=== PATIENT | female | born 1960 | race Caucasian/White ===

== ENCOUNTER 2018-11-30 04:31 | Emergency (ER) | payer BC, OTHER ==
[~2018-11-30] VITALS: Ht 160 cm; Wt 106.6 kg
--- OUTSIDE RECORDS SUMMARY | 2018-11-30 04:41 | XMS REPORT | Continuity of Care Document ---
Author Organization Unknown Address Unknown Allergies There is no data. Medications There is no data. Problems There is no data. Procedures There is no data. Results Test Result Range CULTURE, URINE - 11/15/18 15:42 CULTURE, URINE, ROUTINE SEE NOTE NRG PDM - 09 PANEL (PROFILE 1) - 11/15/18 15:42 Prescribed Drug 1 NRG Creatinine NRG pH NRG Oxidant NRG Amphetamines NRG medMATCH Amphetamines NRG Benzodiazepines NRG medMATCH Benzodiazepines NRG Marijuana Metabolite NRG medMATCH Marijuana Metab NRG Cocaine Metabolite NRG medMATCH Cocaine Metab NRG Opiates NRG medMATCH Opiates NRG Oxycodone NRG medMATCH Oxycodone NRG Amphetamine NRG medMATCH Amphetamine NRG Methamphetamine NRG medMATCH Methamphetamine NRG Alphahydroxyalprazolam NRG medMATCH aOH alprazolam NRG Alphahydroxymidazolam NRG medMATCH aOH midazolam NRG Alphahydroxytriazolam NRG medMATCH aOH triazolam NRG Aminoclonazepam NRG medMATCH Aminoclonazepam NRG Hydroxyethylflurazepam NRG medMATCH [place],Et flurazepam NRG Lorazepam NRG medMATCH Lorazepam NRG Nordiazepam NRG medMATCH Nordiazepam NRG Oxazepam NRG medMATCH Oxazepam NRG Temazepam NRG medMATCH Temazepam NRG Codeine NRG medMATCH Codeine NRG Hydrocodone NRG medMATCH Hydrocodone NRG Hydromorphone NRG medMATCH Hydromorphone NRG Morphine NRG medMATCH Morphine NRG Norhydrocodone NRG medMATCH Norhydrocodone NRG Prescribed Drug 2 NRG Prescribed Drug 3 NRG Prescribed Drug 4 NRG Prescribed Drug 5 NRG Specific [place] NRG Abnormal Specimen Validity Test: NRG Marijuana Metabolite NRG medMATCH Marijuana Metab NRG Benzoylecgonine NRG medMATCH Benzoylecgonine NRG Noroxycodone NRG medMATCH Noroxycodone NRG Oxycodone NRG medMATCH Oxycodone NRG Oxymorphone NRG medMATCH Oxymorphone NRG Barbiturates NRG medMATCH Barbiturates NRG Methadone Metabolite NRG medMATCH Methadone Metab NRG Phencyclidine NRG medMATCH Phencyclidine NRG Amobarbital NRG medMATCH Amobarbital NRG Butalbital NRG medMATCH Butalbital NRG Pentobarbital NRG medMATCH Pentobarbital NRG Phenobarbital NRG medMATCH Phenobarbital NRG Secobarbital NRG medMATCH Secobarbital NRG EDDP NRG medMATCH EDDP NRG Methadone NRG medMATCH Methadone NRG Phencyclidine NRG medMATCH Phencyclidine NRG Confirmation Testing Performed at: [facility] PDM - 09 PANEL (PROFILE 1) - 11/15/18 15:49 Creatinine 69.4 mg/dL > or=20.0 pH 6.04 4.5 - 9.0 Oxidant NEGATIVE mcg/mL <200 Amphetamines NEGATIVE ng/mL <500 medMATCH Amphetamines CONSISTENT NRG Benzodiazepines POSITIVE ng/mL <100 Marijuana Metabolite NEGATIVE ng/mL <20 medMATCH Marijuana Metab CONSISTENT NRG Cocaine Metabolite NEGATIVE ng/mL <150 medMATCH Cocaine Metab CONSISTENT NRG Opiates POSITIVE ng/mL <100 Oxycodone NEGATIVE ng/mL <100 medMATCH Oxycodone CONSISTENT NRG COMMENT NRG Alphahydroxyalprazolam 48 ng/mL <25 medMATCH aOH alprazolam INCONSISTENT NRG Alphahydroxymidazolam NEGATIVE ng/mL <50 medMATCH aOH midazolam CONSISTENT NRG Alphahydroxytriazolam NEGATIVE ng/mL <50 medMATCH aOH triazolam CONSISTENT NRG Aminoclonazepam NEGATIVE ng/mL <25 medMATCH Aminoclonazepam CONSISTENT NRG Hydroxyethylflurazepam NEGATIVE ng/mL <50 medMATCH [place],Et flurazepam CONSISTENT NRG Lorazepam NEGATIVE ng/mL <50 medMATCH Lorazepam CONSISTENT NRG Nordiazepam NEGATIVE ng/mL <50 medMATCH Nordiazepam CONSISTENT NRG Oxazepam NEGATIVE ng/mL <50 medMATCH Oxazepam CONSISTENT NRG Temazepam NEGATIVE ng/mL <50 medMATCH Temazepam CONSISTENT NRG Codeine NEGATIVE ng/mL <50 medMATCH Codeine CONSISTENT NRG Hydrocodone NEGATIVE ng/mL <50 medMATCH Hydrocodone CONSISTENT NRG Hydromorphone NEGATIVE ng/mL <50 medMATCH Hydromorphone CONSISTENT NRG Morphine 7839 ng/mL <50 medMATCH Morphine INCONSISTENT NRG Norhydrocodone NEGATIVE ng/mL <50 medMATCH Norhydrocodone CONSISTENT NRG Barbiturates NEGATIVE ng/mL <300 medMATCH Barbiturates CONSISTENT NRG Methadone Metabolite NEGATIVE ng/mL <100 medMATCH Methadone Metab CONSISTENT NRG Phencyclidine NEGATIVE ng/mL <25 medMATCH Phencyclidine CONSISTENT NRG Encounters ACCT No. Visit Date/Time Discharge Status Pt. Type Provider Facility Loc./Unit Complaint [id number] 11/15/2018 14:30:00 11/15/2018 23:59:59 [facility] Outpatient MAY HENDRICKSON [facility] [id number] 11/15/2018 15:49:00 Document Registration [id number] 11/15/2018 14:30:00 Document Registration
--- OUTSIDE RECORDS SUMMARY | 2018-11-30 04:41 | XMS REPORT ---
Author Author MAY HENDRICKSON Organization [facility] Address [address] [place] [address] Care Team Providers Care Disability Insurance Hearing Officer Name Role Phone MAY HENDRICKSON Unavailable PROBLEMS Type Condition ICD9-CM Code GWQ21-ER Code Onset Dates Condition Status SNOMED Code Problem Degeneration of intervertebral disc, site unspecified [id number] Active Problem Esophageal dysphagia R13.10 Jan, Active 95575576 Problem Status post colonoscopy Z98.890 Oct, Active 713828346898 Problem Diverticulitis of colon K57.32 Feb, Active 791813068 Problem Genital herpes A60.00 Active 26595663 Problem Essential hypertension, benign I10 Active 6505412 Problem Unspecified urinary incontinence R32 Active 804410984 Problem Pure hypercholesterolemia E78.00 Active 735959347 Problem Endometriosis of uterus N80.0 Active 64235088 Problem Allergic rhinitis due to other allergen J30.89 Active 24742832 Problem Sciatica M54.30 May, Active 74437350 Problem Morbid obesity E66.01 May, Active 501485001 Problem Elevated glucose R73.09 Jun, Active 48057555 Problem GERD (gastroesophageal reflux disease) K21.9 Jan, Active 762212976 ALLERGIES No Information ENCOUNTERS Encounter Location Date Diagnosis [address] [address] Nov, [address] [address] Nov, Morbid obesity E66.01 ; Flank pain, acute R10.9 ; Elevated glucose R73.09 and Essential hypertension, benign I10 [address] [address] Nov, [address] [address] Oct, [facility] [address] [place] [address] Oct, [address] [address] Sep, [facility] [address] [id number] [address] Sep, [facility] [address] [id number] [place] [address] Jul, [facility] [id number] [place] [address] Jul, [facility] [id number] [place] [address] Jul, [facility] [id number] [place] [address] Apr, [facility] [address] [id number] [place] [address] Jan, IMMUNIZATIONS No Known Immunizations SOCIAL HISTORY Never Assessed REASON FOR VISIT Controlled Med Refill PLAN OF CARE VITAL SIGNS MEDICATIONS Medication Instructions Dosage Frequency Start Date End Date Duration Status Ambien CR 12.5 MG Orally Once a day 1 tablet at bedtime as needed 24h Oct, 28 days Active RESULTS No Results PROCEDURES No Known procedures INSTRUCTIONS MEDICATIONS ADMINISTERED No Known Medications MEDICAL (GENERAL) HISTORY Type Description Date Medical History Endometriosis of uterus Medical History Incontinence of urine Medical History Chronic GERD Medical History Elevated glucose Medical History Morbid obesity Medical History Sciatica Medical History Benign hypertension Medical History Genital herpes Medical History Hypercholesterolemia Surgical History Hysterectomy Surgical History Lap Lupe Surgical History Total Knee Replacement Surgical History Tonsilectomy
[2018-11-30] MEDS ORDERED: NS IV 1000 ML 1,000 ML IV SCH (04:58)
[2018-11-30] MEDS ORDERED: KETOROLAC 30 MG/ML VIAL IVP ONE (05:00)
[2018-11-30] MEDS ORDERED: MORP-33 (05:02)
[2018-11-30] MEDS ORDERED: ALLO300T2 (05:02)
[2018-11-30] MEDS ORDERED: CETI-267 PO (05:02)
[2018-11-30] MEDS ORDERED: ASPI-586 PO (05:02)
[2018-11-30] MEDS ORDERED: ACYC200C (05:02)
[2018-11-30] MEDS ORDERED: DICY10CA12 (05:02)
[2018-11-30] MEDS ORDERED: FAMO40TA6 (05:02)
[2018-11-30] MEDS ORDERED: ROSU10TA27 (05:02)
[2018-11-30] MEDS ORDERED: CYCL5TAB PO (05:02)
[2018-11-30] MEDS ORDERED: ALPR0.254 (05:02)
[2018-11-30] MEDS ORDERED: LYSI500T37 PO (05:02)
[2018-11-30] MEDS ORDERED: LISI-552 (05:02)
[2018-11-30] MEDS ORDERED: ZOLP12.546 (05:02)
[2018-11-30] MEDS ORDERED: ROPI0.5T2 (05:02)
[2018-11-30] MEDS ORDERED: FURO-125 PO (05:02)
[2018-11-30 05:08] LABS: BILIRUBIN,URINE NEGATIVE (NEGATIVE); CLARITY,URINE CLEAR; COLOR,URINE YELLOW; GLUCOSE, URINE (UA) NEGATIVE (NEGATIVE); KETONES,URINE NEGATIVE (NEGATIVE); LEUKOCYTE ESTERASE ,URINE 2+ (NEGATIVE); NITRITE,URINE NEGATIVE (NEGATIVE); PH,URINE 6 (5-9); PROTEIN,URINE NEGATIVE (NEGATIVE); UROBILINOGEN,URINE NORMAL (NORMAL)
--- NOTE | 2018-11-30 05:09 | ED Abdominal Pain ---
General Chief Complaint: Abdominal/GI Problems Stated Complaint: LOWER BACK PAIN,LEGS & FEET ARE NUMB TINGLELY Source of Information: Patient, Spouse Exam Limitations: No Limitations (ADRIA MILLAN) History of Present Illness Date Seen by Provider: Nov 30, 2018 Time Seen by Provider: 04:50 Initial Comments Patient presents to ER by private conveyance with her significant other and chief complaint that for the past 15 days she's been having some left back and flank pain as well as left groin pain. She has no history of kidney stones but she does have a history of diverticulitis with her most recent colonoscopy being in 2009. It was discovered she had some polyps as well as that time. She' s not having any blood or black tarry stools but she is having some loose stools. She states they have turned green lately. She has no dysuria or hematuria. Initially her primary care doctor thought she might have a bladder infection and put her on some Levaquin but that failed to make a difference so she went back to him and initiated Cipro and Flagyl because because the doctor thought she was having diverticulitis. She states that despite taking the antibiotics as prescribed she is still not feeling any better but indeed worse. Rating her pain at about a 9 out of 10 . She has taken no extra pain medicines except for her 15 mg morphine twice a day. No antipyretics. She's had no fever but does have occasional nausea but none today. She takes morphine for her chronic back pain and fibromyalgia and typically has IBSconstipation and thought was on in the last couple weeks that she was having loose stools. She has continued to take her MiraLAX daily Despite having diarrhea for the past 2 weeks. Past couple days she says she's been getting weak because of all the diarrhea and says that her legs sometimes are about to give out from underneath her. She's had no falls. The patient will be done on her Cipro and Flagyl by Monday (ADRIA MILLAN) Allergies and Home Medications Allergies Coded Allergies: diazepam (Verified Allergy, Unknown, 11/30/18) gabapentin (Verified Allergy, Unknown, 11/30/18) hydrochlorothiazide (Verified Allergy, Unknown, 11/30/18) indomethacin (Verified Allergy, Unknown, 11/30/18) meloxicam (Verified Allergy, Unknown, 11/30/18) succinylcholine (Verified Allergy, Unknown, 11/30/18) triamterene (Verified Allergy, Unknown, 11/30/18) Patient Home Medication List Home Medication List Reviewed: Yes (ADRIA MILLAN) Review of Systems Review of Systems Constitutional: chills; No diaphoresis, No fever; malaise, weakness EENTM: No Blurred Vision, No Double Vision Respiratory: Denies Cough, Denies Orthopnea Cardiovascular: Denies Chest Pain, Denies Edema Gastrointestinal: Abdominal Pain; Denies Constipated, Denies Diarrhea, Denies Nausea; Poor Fluid Intake; Denies Vomiting Genitourinary: Denies Burning, Denies Discharge Musculoskeletal: back pain (left flank); No joint pain (ADRIA MILLAN) Past Lfjdauc-Vpxlqg-Wsxzhg Hx Patient Social History Alcohol Use: Denies Use Recreational Drug Use: No Smoking Status: Never a Smoker Recent Foreign Travel: No Contact w/Someone Who Travel: No (ADRIA MILLAN) Physical Exam Vital Signs Vital Signs - First Documented 11/30/18 04:41 Temp 96.8 Pulse 77 Resp 18 B/P (MAP) 146/83 (104) Pulse Ox 99 O2 Delivery Room Air (BONNIE LOUISE MD) Vital Signs Capillary Refill : (ADRIA MILLAN) Height/Weight/BMI Height: '" Weight: lbs. oz. kg; BMI Method: General Appearance: WD/WN, no apparent distress HEENT: PERRL/EOMI, pharynx normal (mildly dry) Respiratory: lungs clear, normal breath sounds, no respiratory distress, no accessory muscle use Cardiovascular: normal peripheral pulses, regular rate, rhythm Peripheral Pulses: 2+ Radial Pulses (R), 2+ Radial Pulses (L) Gastrointestinal: normal bowel sounds (fairly quiescent), soft, no organomegaly (negative for Kuhn sign or McBurney's point tenderness); No distended; guarding (involuntary); No rebound; tenderness (moderately tender with mild guarding along the left upper and lower quadrant); No hernia, No mass Extremities: normal range of motion, non-tender, normal inspection, normal capillary refill Back: normal inspection, no vertebral tenderness, CVA tenderness (L) Neurologic/Psychiatric: alert, normal mood/affect, oriented x 3 Skin: normal color, warm/dry (MANISHA,ADRIA J) Progress/Results/Core Measures Results/Orders Lab Results Laboratory Tests Test 11/30/18 05:00 11/30/18 05:15 Range/Units Urine Color YELLOW Urine Clarity CLEAR Urine pH 6 5-9 Urine Specific [place] 1.015 L 1.016-1.022 Urine Protein NEGATIVE NEGATIVE Urine Glucose (UA) NEGATIVE NEGATIVE Urine Ketones NEGATIVE NEGATIVE Urine Nitrite NEGATIVE NEGATIVE Urine Bilirubin NEGATIVE NEGATIVE Urine Urobilinogen NORMAL NORMAL MG/DL Urine Leukocyte Esterase 2+ H NEGATIVE Urine RBC (Auto) 1+ H NEGATIVE Urine RBC 2-5 H /HPF Urine WBC RARE /HPF Urine Squamous Epithelial Cells RARE /HPF Urine Crystals NONE /LPF Urine Bacteria NEGATIVE /HPF Urine Casts NONE /LPF Urine Mucus NEGATIVE /LPF Urine Culture Indicated NO Urine Opiates Screen POSITIVE H NEGATIVE Urine Oxycodone Screen NEGATIVE NEGATIVE Urine Methadone Screen NEGATIVE NEGATIVE Urine Propoxyphene Screen NEGATIVE NEGATIVE Urine Barbiturates Screen NEGATIVE NEGATIVE Ur Tricyclic Antidepressants Screen NEGATIVE NEGATIVE Urine Phencyclidine Screen NEGATIVE NEGATIVE Urine Amphetamines Screen NEGATIVE NEGATIVE Urine Methamphetamines Screen NEGATIVE NEGATIVE Urine Benzodiazepines Screen POSITIVE H NEGATIVE Urine Cocaine Screen NEGATIVE NEGATIVE Urine Cannabinoids Screen NEGATIVE NEGATIVE White Blood Count 5.4 4.3-11.0 10^3/uL Red Blood Count 4.24 L 4.35-5.85 10^6/uL Hemoglobin 12.7 11.5-16.0 G/DL Hematocrit 37 35-52 % Mean Corpuscular Volume 88 80-99 FL Mean Corpuscular Hemoglobin 30 25-34 PG Mean Corpuscular Hemoglobin Concent 34 32-36 G/DL Red Cell Distribution Width 13.8 10.0-14.5 % Platelet Count 172 130-400 10^3/uL Mean Platelet Volume 10.2 7.4-10.4 FL Neutrophils (%) (Auto) 55 42-75 % Lymphocytes (%) (Auto) 29 12-44 % Monocytes (%) (Auto) 11 0-12 % Eosinophils (%) (Auto) 5 0-10 % Basophils (%) (Auto) 1 0-10 % Neutrophils # (Auto) 2.9 1.8-7.8 X 10^3 Lymphocytes # (Auto) 1.6 1.0-4.0 X 10^3 Monocytes # (Auto) 0.6 0.0-1.0 X 10^3 Eosinophils # (Auto) 0.3 0.0-0.3 10^3/uL Basophils # (Auto) 0.0 0.0-0.1 10^3/uL Sodium Level 143 135-145 MMOL/L Potassium Level 3.7 3.6-5.0 MMOL/L Chloride Level 109 H 98-107 MMOL/L Carbon Dioxide Level 23 21-32 MMOL/L Anion Gap 11 5-14 MMOL/L Blood Urea Nitrogen 13 7-18 MG/DL Creatinine 0.84 0.60-1.30 MG/DL Estimat Glomerular Filtration Rate > 60 BUN/Creatinine Ratio 15 Glucose Level 105 70-105 MG/DL Calcium Level 9.5 8.5-10.1 MG/DL Corrected Calcium 9.5 8.5-10.1 MG/DL Magnesium Level 2.1 1.8-2.4 MG/DL Total Bilirubin 0.6 0.1-1.0 MG/DL Aspartate Amino Transf (AST/SGOT) 38 H 5-34 U/L Alanine Aminotransferase (ALT/SGPT) 43 0-55 U/L Alkaline Phosphatase 71 40-136 U/L C-Reactive Protein High Sensitivity 0.17 0.00-0.50 MG/DL Total Protein 5.9 L 6.4-8.2 GM/DL Albumin 4.0 3.2-4.5 GM/DL Lipase 22 8-78 U/L Monoscreen NEGATIVE NEGATIVE (BONNIE LOUISE MD) Medications Given in ED Current Medications Medications Dose Ordered Sig/Latosha Route Start Time Stop Time Status Last Admin Dose Admin Ketorolac Tromethamine 30 mg ONCE ONCE IVP 11/30/18 05:00 11/30/18 05:04 DC 11/30/18 05:18 30 MG (BONNIE LOUISE MD) Vital Signs/I&O 11/30/18 04:41 Temp 96.8 Pulse 77 Resp 18 B/P (MAP) 146/83 (104) Pulse Ox 99 O2 Delivery Room Air (BONNIE LOUISE MD) Progress Progress Note #1: Time: 05:16 Progress Note Anticipation of many to do some CT imaging. We'll start her some Toradol but she 's not having any nausea some Zofran. Her vital signs are normal without fever or tachycardia. We will check electrolytes CBC lipase magnesium etc. It is possible with her left side of abdominal pain that she is having a diverticulitis attack. She has CVA tenderness left worse than right so we'll check some urine and see if we see red blood cells. She has not had a CT of her abdomen or pelvis in the last 2 weeks according to the patient. Progress Note #2: Time: 06:07 Progress Note Toradol did not completely resolve patient's pain. She still having any nausea but she did have 2 red blood cells per high-power field noted in her urinalysis so we'll obtain CT without contrast kidney stone study and we'll also get a review of her diverticulosis versus diverticulitis. Report has been given to Dr. Connolly and he has assumed control the patient. (ADRIA MILLAN) Progress Note : Time: 07:37 Progress Note Care of this patient was assumed from Dr. Millan at shift change. CT was pending. Labs were reviewed. CT revealed no acute findings to explain patient' s pain. Patient was reexamined and found to still have some tenderness in the central and left abdomen on palpation. Workup was otherwise unremarkable except for incidental adrenal nodule noted on CT scan. Patient was informed of the adrenal nodule. 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 This may explain her recurrent long-term abdominal pain. Patient also tells me she often has diarrhea or syndrome rib any stools. It has been 9 years since she's had a colonoscopy. I'm recommending that she get a colonoscopy as soon as possible. A copy of this note will be sent to Dr. Hendrickson and referral to a surgeon as recommended. (BONNIE LOUISE MD) Transfer of Care Time: 06:08 Care transferred to: Dr. Duncan (ADRIA MILLAN) Departure Impression Primary Impression: Left sided abdominal pain of unknown cause Additional Impressions: Adrenal nodule Change in stool caliber Disposition: 01 HOME, SELF-CARE Condition: Improved Departure-Patient Inst. Decision time for Depature: 07:39 (BONNIE LOUISE MD) Referrals: MAY HENDRICKSON MD (PCP/Family) Primary Care Physician Patient Instructions: Acute Abdomen (Belly Pain), Adult (DC) Add. Discharge Instructions: Follow-up with your primary care provider as soon as possible and seek referral to a surgeon. Colonoscopy is recommended. Use your stool softener/MiraLAX as needed for constipation. Hold doses of MiraLAX and stool softeners if you are having thinner watery diarrhea. You may continue using your prescribed pain medications. For temporary relief of pain, you may add ibuprofen up to 600 mg every 6 hours as needed. Take with food or milk to avoid stomach irritation. Return to the emergency room if you have worsening symptoms or develop new symptoms such as fever. You may complete any remaining antibiotics that were prescribed by your primary care provider. All discharge instructions reviewed with patient and/or family. Voiced understanding. Copy Copies To 1: MAY HENDRICKSON MD, TITUS J Nov 30, 2018 05:09 BONNIE LOUISE MD Nov 30, 2018 07:41
[2018-11-30 05:17] LABS: BACTERIA,URINE NEGATIVE /HPF; SQUAMOUS EPITHELIAL CELL,UR RARE /HPF; WBC,URINE RARE /HPF
[2018-11-30 05:25] LABS: BASOPHILS % (AUTO) 1 % (0-10); EOSINOPHILS # (AUTO) 0.3 10^3/uL (0.0-0.3); EOSINOPHILS % (AUTO) 5 % (0-10); HEMATOCRIT 37 % (35-52); HEMOGLOBIN 12.7 G/DL (11.5-16.0); LYMPHOCYTES # (AUTO) 1.6 X 10^3 (1.0-4.0); LYMPHOCYTES % (AUTO) 29 % (12-44); MEAN CORPUSCULAR HEMOGLOBIN 30 PG (25-34); MEAN CORPUSCULAR HGB CONC 34 G/DL (32-36); MEAN CORPUSCULAR VOLUME 88 FL (80-99); MEAN PLATELET VOLUME 10.2 FL (7.4-10.4); MONOCYTES # (AUTO) 0.6 X 10^3 (0.0-1.0); MONOCYTES % (AUTO) 11 % (0-12); NEUTROPHILS # (AUTO) 2.9 X 10^3 (1.8-7.8); NEUTROPHILS % (AUTO) 55 % (42-75); PLATELET COUNT 172 10^3/uL (130-400); RED CELL DISTRIBUTION WIDTH 13.8 % (10.0-14.5); WHITE BLOOD COUNT 5.4 10^3/uL (4.3-11.0)
[2018-11-30 05:25] LABS: AMPHETAMINE SCREEN, URINE NEGATIVE (NEGATIVE); BARBITURATE SCREEN URINE NEGATIVE (NEGATIVE); BENZODIAZEPINES SCREEN URINE POSITIVE (NEGATIVE); CANNABINOID SCREEN, URINE NEGATIVE (NEGATIVE); COCAINE SCREEN URINE NEGATIVE (NEGATIVE); METHADONE STAT NEGATIVE (NEGATIVE); METHAMPHETAMINE SCREEN URINE S NEGATIVE (NEGATIVE); OPIATE SCREEN URINE POSITIVE (NEGATIVE); OXYCODONE STAT NEGATIVE (NEGATIVE); PROPOXYPHENE STAT NEGATIVE (NEGATIVE); TRICYCLIC ANTIDEPRESSANTS SCRE NEGATIVE (NEGATIVE)
[2018-11-30 05:44] LABS: ALANINE AMINOTRANSFERASE 43 U/L (0-55); ALKALINE PHOSPHATASE 71 U/L (40-136); BILIRUBIN,TOTAL 0.6 MG/DL (0.1-1.0); BUN/CREATININE RATIO 15; CALCIUM 9.5 MG/DL (8.5-10.1); CARBON DIOXIDE 23 MMOL/L (21-32); CHLORIDE 109 MMOL/L (98-107); CREATININE SERUM 0.84 MG/DL (0.60-1.30); GFR ESTIMATED > 60; GLUCOSE 105 MG/DL (70-105); LIPASE 22 U/L (8-78); MAGNESIUM 2.1 MG/DL (1.8-2.4); POTASSIUM 3.7 MMOL/L (3.6-5.0); SODIUM 143 MMOL/L (135-145); TOTAL PROTEIN 5.9 GM/DL (6.4-8.2)
[2018-11-30 07:46] VITALS: BP 115/70
--- NOTE | 2018-11-30 08:13 | Diagnostic Imaging Report ---
PROCEDURE: CT urinary tract, rule out kidney stone. TECHNIQUE: Multiple contiguous axial images were obtained through the abdomen and pelvis without the use of intravenous contrast. Auto Exposure Controls were utilized during the CT exam to meet ALARA standards for radiation dose reduction. INDICATION: Abdominal pain. No prior studies are available for comparison. The lung bases are clear. No discrete liver mass is identified. The gallbladder is surgically absent. No biliary duct dilatation is seen. The pancreas and spleen are unremarkable. The right adrenal gland is unremarkable. There is a low-density mass involving the left adrenal gland measuring 2.4 cm in size. This most likely represents an adenoma. Kidneys are without calculi. No hydronephrosis is seen. No ureteral or bladder calculi are detected. Aorta is non-aneurysmal. The small and large bowel loops are normal caliber. The appendix is visualized in the right lower quadrant and appears unremarkable. There is occasional diverticuli within the sigmoid colon but no evidence of acute diverticulitis. There is no ascites. Bony structures demonstrate spondylolisthesis of L4 on L5. There is lower lumbar facet arthropathy. IMPRESSION: 1. No evidence of urinary tract calculi or obstruction. 2. 2.4 cm low-density left adrenal mass suggestive of an adenoma. 3. Uncomplicated sigmoid diverticulosis. Dictated by: Dictated on workstation # [id number]
== END 2018-11-30 07:48 | disposition home or self-care (01) ==
LOC: ER 04:37
DX: R10.30 Lower abdominal pain, unspecified (principal); E27.9 Disorder of adrenal gland, unspecified; Z88.8 Allergy status to other drugs, medicaments and biological substances; Z87.19 Personal history of other diseases of the digestive system
CPT/HCPCS: 36415; 74176; 80053; 80306; 81000; 83690; 83735; 85025; 86141; 86308

== ENCOUNTER 2018-12-18 20:19 | Emergency (ER) | payer BC ==
[~2018-12-18] VITALS: Ht 160 cm; Wt 106.6 kg
[~2018-12-18 20:19] MED LIST: ACYC200C; ALLO300T2; ALPR0.254; ASPI-586 PO; CETI-267 PO; CYCL5TAB PO; DICY10CA12; FAMO40TA6; FURO-125 PO; LISI-552; LYSI500T37 PO; MORP-33; ROPI0.5T2; ROSU10TA27; ZOLP12.546
--- OUTSIDE RECORDS SUMMARY | 2018-12-18 20:26 | XMS REPORT | Continuity of Care Document ---
[...] 4 NRG Prescribed Drug 5 NRG Specific [place] NRG Abnormal Specimen Validity Test: NRG Marijuana [...] medMATCH Phencyclidine NRG Confirmation Testing Performed at: [facility] PDM - 09 PANEL (PROFILE 1) - [...] Status Pt. Type Provider Facility Loc./Unit Complaint [id number] 12/04/2018 13:15:00 12/04/2018 23:59:59 [facility] Outpatient MAY HENDRICKSON [facility] [id number] 11/15/2018 15:49:00 Document Registration [id number] 11/15/2018 14:30:00 Document Registration
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
[2018-12-18] MEDS ORDERED: DEXAMETHASONE 10 MG/ML (DECADRON) 1 ML VIAL IM ONE (22:00)
[2018-12-19 02:40] VITALS: BP 127/65
--- NOTE | 2018-12-19 07:56 | Diagnostic Imaging Report ---
PROCEDURE: CT lumbar spine without contrast. TECHNIQUE: Multiple contiguous axial images were obtained through the lumbar spine without the use of intravenous contrast. Sagittal and coronal reformations were then performed. Auto Exposure Controls were utilized during the CT exam to meet ALARA standards for radiation dose reduction. INDICATION: Fall. Back pain. FINDINGS: There is grade 1 anterolisthesis of L4 on L5 due to marked degenerative facet disease. This is causing moderate severe spinal stenosis. Vertebral body height is well maintained throughout. There is loss of disc space height at L4-L5 and L5-S1. There is vacuum phenomena at L5-S1 with hypertrophic endplate change. There are no acute fractures. The paraspinal soft tissues are normal. IMPRESSION: Spondylosis with spondylolisthesis of L4 on L5. This is causing moderate stenosis. No acute abnormalities. Dictated by: Dictated on workstation # [id number]
--- NOTE | 2018-12-19 07:58 | Diagnostic Imaging Report ---
PROCEDURE: CT chest without contrast. TECHNIQUE: Multiple contiguous axial images were obtained through the chest without the use of intravenous contrast. Auto Exposure Controls were utilized during the CT exam to meet ALARA standards for radiation dose reduction. INDICATION: Fall. Back pain. FINDINGS: Sagittal and coronal reformatted images show good alignment of vertebral bodies. Body height is well-maintained without compression fracture. Facets show good alignment. No evidence of spinal stenosis. Degenerative disc disease with hypertrophic endplate changes noted throughout the lower thoracic spine. The lungs are well-aerated and clear. Heart is not enlarged. No pleural effusion. No pneumothorax. No evidence of rib fracture. There is noted a 2.5 cm well-circumscribed fatty nodule in the left adrenal gland. IMPRESSION: 1. No acute abnormalities demonstrated. 2. Fatty adrenal lesion on the left consistent with adenoma. This was described on previous CT scan of 11/30/2018 of the abdomen. Dictated by: Dictated on workstation # [id number]
--- NOTE | 2018-12-19 08:04 | Diagnostic Imaging Report ---
PROCEDURE: CT head and CT cervical spine without contrast. TECHNIQUE: Multiple contiguous axial images were obtained through the brain and cervical spine without the use of intravenous contrast. Sagittal and coronal reformations through the cervical spine were then performed. Auto Exposure Controls were utilized during the CT exam to meet ALARA standards for radiation dose reduction. INDICATION: Fall. FINDINGS: CT HEAD: There is no evidence of intracranial hemorrhage. Ventricles and cortical gyral pattern are normal. There is no mass effect. Basal cisterns are clear. Mastoid air cells are well-aerated. No calvarial lesions. IMPRESSION: Negative CT head. CT CERVICAL SPINE: Good alignment. Body heights well-maintained. Facets show good alignment. Diffuse degenerative cervical disc and facet disease from C3 through C7. Hypertrophic endplate changes noted throughout. There is mild spinal stenosis at C5 through C7. The surrounding soft tissues appear normal. There are no fractures. IMPRESSION: Cervical spondylosis with no acute abnormalities. Dictated by: Dictated on workstation # [id number]
== END 2018-12-19 01:04 | disposition home or self-care (01) ==
LOC: EDUNIT# 20:19 → ER FS 20:22
DX: S09.90XA Unspecified injury of head, initial encounter (principal); M54.2 Cervicalgia; M25.511 Pain in right shoulder; M54.6 Pain in thoracic spine; M54.5 Low back pain; E78.00 Pure hypercholesterolemia, unspecified; I10 Essential (primary) hypertension; K58.9 Irritable bowel syndrome, unspecified; M79.7 Fibromyalgia; M10.9 Gout, unspecified; F41.9 Anxiety disorder, unspecified; Z86.19 Personal history of other infectious and parasitic diseases; Z87.19 Personal history of other diseases of the digestive system; Z87.448 Personal history of other diseases of urinary system; Z88.8 Allergy status to other drugs, medicaments and biological substances; Z90.710 Acquired absence of both cervix and uterus; Z98.890 Other specified postprocedural states; Z98.51 Tubal ligation status; Z90.89 Acquired absence of other organs; W11.XXXA Fall on and from ladder, initial encounter; W22.09XA Striking against other stationary object, initial encounter
CPT/HCPCS: 70450; 71250; 72125; 72131

== ENCOUNTER → 2019-07-30 | Outpatient (CLI) | payer BC ==
[~2019-07-30] MED LIST changes: -ROSU10TA27; +ROSU10TA28
--- NOTE | 2019-07-30 15:11 | Diagnostic Imaging Report ---
INDICATION: Left fourth finger swelling and pain. TIME OF EXAM: 1:55 p.m. Three views of the left hand were obtained. FINDINGS: The distal radius and ulna are intact. Carpus is intact. Metacarpals and phalanges are without evidence of fracture. There does appear to be some mild soft tissue swelling involving the proximal aspect of the fourth finger, etiology indeterminate. Very mild generalized interphalangeal joint degenerative change is seen. IMPRESSION: Degenerative changes and mild soft tissue swelling involving the left fourth finger. No acute bony abnormality is detected. Dictated by: Dictated on workstation # [id number]
== END ==
LOC: RAD FS 13:51
PROVIDERS: ATTEND Family Medicine
DX: M19.042 Primary osteoarthritis, left hand (principal)
CPT/HCPCS: 73130